=== PATIENT | male | born 1980 | race Caucasian/White ===

== ENCOUNTER 2024-05-27 08:05 | Emergency (ER) | payer SELFPAY | END 2024-05-27 08:58 | disposition home or self-care (01) | LOC: VM.ED 08:05 → SUPCPDRO 08:05 → VM.ED 08:58 | DX: B34.9 Viral infection, unspecified (principal); I10 Essential (primary) hypertension; E11.9 Type 2 diabetes mellitus without complications; F17.210 Nicotine dependence, cigarettes, uncomplicated | CPT/HCPCS: 87428-QW; 99284 ==